=== PATIENT | female | born 1960 | race African-American/Black ===

== ENCOUNTER 2019-01-13 16:33 | Emergency (ER) | payer OTHER ==
[~2019-01-13] VITALS: Ht 165.1 cm; Wt 140.6 kg
[2019-01-13 16:41] VITALS: Ht 165.1 cm; Wt 140.6 kg
[2019-01-13] MEDS ORDERED: ASPIR 8181 MG PO (17:20)
[2019-01-13] MEDS ORDERED: SIMVASTATIN20 M1 PO (17:21)
[2019-01-13] MEDS ORDERED: CHLORTHALIDONE50 MG PO (17:21)
[2019-01-13] MEDS ORDERED: NOR5 PO (17:22)
[2019-01-13 18:21] VITALS: BP 145/93
== END 2019-01-13 18:21 | disposition home or self-care (01) ==
LOC: ED 16:33
DX: M25.561 Pain in right knee (principal)
CPT/HCPCS: J1885; Q0092